=== PATIENT | male | born 1955 | race African-American/Black ===

== ENCOUNTER 2021-09-30 19:56 | Inpatient (IN) ==
[2021-09-30 21:01] LABS: Basophils # 0.1 K/mcL (0.0-0.2); Basophils % 0.9 %; Eosinophils # 0.3 K/mcL (0.0-0.6); Eosinophils % 3.6 %; Hematocrit 36.7 % (37.5-50.1); Hemoglobin 11.9 g/dL (12.9-16.9); Immature Granulocytes % 0.1 % (0-4); Lymphocytes # 2.9 K/mcL (0.6-4.6); Mean Corpuscular HGB Conc 32.4 g/dL (31.6-35.5); Mean Corpuscular Hemoglobin 27.9 pg (28.0-33.3); Mean Corpuscular Volume 86.2 fL (83.0-100.0); Mean Platelet Volume 9.4 fL (9.4-12.4); Monocytes # 0.9 K/mcL (0.0-1.3); Monocytes % 13.3 %; Neutrophils # 2.8 K/mcL (1.6-8.9); Platelet Count 220 K/mcL (140-400); Red Blood Count 4.26 M/mcL (4.19-5.50); Red Cell Distribution Width 14.4 % (11.5-14.5); Segmented Neutrophils % 40.1 %
[2021-09-30 21:11] LABS: INR 1.2; Prothrombin Time 13.4 Seconds (9.4-12.1)
[2021-09-30 21:13] LABS: Blood Urea Nitrogen 19 mg/dL (8-23); Carbon Dioxide 25 mEq/L (23-29); Chloride 104 mEq/L (98-107); Potassium 3.5 mEq/L (3.5-5.1); Sodium 138 mEq/L (136-145)
[2021-09-30 21:14] LABS: Alanine Aminotransferase 22 Units/L (7-52); Albumin 3.9 g/dL (3.5-5.7); Albumin/Globulin Ratio 1.8 (1.1-2.2); Alkaline Phosphatase 49 Units/L (34-104); Aspartate Amino Transferase 30 Units/L (13-39); BUN/Creatinine Ratio 24 (6-26); Bilirubin,Direct 0.2 mg/dL (0.0-0.2); Bilirubin,Indirect 0.7 mg/dL (0.0-1.0); Bilirubin,Total 0.9 mg/dL (0.3-1.0); Calcium 8.7 mg/dL (8.6-10.3); Ethanol < 10 mg/dL (Less than 10); Globulin 2.2 g/dL (2.4-3.5); Glucose 88 mg/dL (70-105); Osmolality,Calculated 288 (280-300); Total Protein 6.1 g/dL (6.4-8.9); Troponin I 0.03 ng/mL (< 0.04); eGFR For African Americans > 60 (> 60); eGFR For Non-African Americans > 60 (> 60)
[2021-09-30 22:39] LABS: Influenza A PCR Negative (Negative); Influenza B PCR Negative (Negative); Resp. Syncytial Virus PCR Negative (Negative)
[2021-09-30 22:41] LABS: SARS-CoV-2 by PCR (In House) Negative (Negative)
[2021-09-30] MEDS ORDERED: *HR* LORazepam 2 MG/ML VIAL IM ONE (23:39)
[2021-10-01] MEDS ORDERED: QUEtiapine Fumarate 100 MG TABLET PO ONE (00:15)
[2021-10-01] MEDS ORDERED: Naloxone 0.4 MG/ML INJ IVP PRN (01:11)
[2021-10-01] MEDS ORDERED: Ondansetron 4 MG/2 ML VIAL IVP PRN (01:11)
[2021-10-01] MEDS ORDERED: Melatonin 3 MG TABLET PO PRN (01:11)
[2021-10-01] MEDS ORDERED: *HR* Promethazine 25 MG/ML VIAL IM PRN (01:11)
[2021-10-01] MEDS ORDERED: Perflutren Lipid Microsphere 1.3 ML in 0.9 % Sodium Chloride 8.7 ML IVP PRN (01:13)
[2021-10-01] MEDS: Aspirin 325 MG TABLET PO ONE ×2 (01:22→01:42)
[2021-10-01] MEDS ORDERED: Ziprasidone 10 MG, Closed System Device IM Kit 1 EACH in Water for inj. (sterile) 0.5 ML IM ONE (01:57)
[2021-10-01] MEDS ORDERED: traZODone 50 MG TABLET PO ONE (02:15)
[2021-10-01] MEDS ORDERED: Ziprasidone 20 MG/VIAL VIAL IM ONE (02:20)
[2021-10-01] MEDS ORDERED: Water for inj. (sterile) 10 ML ONE (02:20)
[2021-10-01] MEDS ORDERED: *HR* LORazepam 2 MG/ML VIAL IVP PRN ×3 (02:43)
[2021-10-01] MEDS ORDERED: D5% in Water 1,000 ML IVC PRN (02:49)
[2021-10-01] MEDS ORDERED: Dextrose 4 GM Chewable Tablets PO PRN ×2 (02:49)
[2021-10-01] MEDS ORDERED: *HR* Dextrose 50 % in Water (Syg) 50 ML SYRINGE IVP PRN (02:49)
[2021-10-01] MEDS: Insulin LISPRO 300 UNITS/3 ML VIAL SUBQ SCH ×6 (04:46→23:31)
[2021-10-01] MEDS ORDERED: Regadenoson 0.4 MG/5 ML SYRINGE IVP ONE (06:00)
[2021-10-01] MEDS: Folic Acid 1 MG TABLET PO SCH (10:11)
[2021-10-01] MEDS: Thiamine (B-1) 100 MG TABLET PO SCH (10:11)
[2021-10-01] MEDS: Vitamin B Complex/Vit C/Vit E 1 EACH TABLET PO SCH (10:11)
[2021-10-01] MEDS ORDERED: chlorproMAZINE 25 MG TABLET PO PRN (10:24)
[2021-10-01] MEDS ORDERED: QUEtiapine Fumarate 25 MG TABLET PO SCH (10:30)
[2021-10-01] MEDS: Gabapentin 300 MG CAPSULE PO SCH ×2 (14:07→19:11)
[2021-10-01] MEDS: Acetaminophen 325 MG TABLET PO PRN ×2 (14:07→20:00)
[2021-10-01] MEDS: hydrOXYzine pamoate 25 MG CAPSULE PO PRN ×2 (14:07→20:00)
[2021-10-01] MEDS ORDERED: Fluticasone Propionate Nasal 50 MCG/SPRAY BOTTLE NS PRN (17:03)
[2021-10-01] MEDS: *HR* LORazepam 1 MG TABLET PO SCH (17:40)
[2021-10-01 18:16] LABS: Basophils % 0.6 %; Eosinophils # 0.2 K/mcL (0.0-0.6); Eosinophils % 3.4 %; Hematocrit 36.6 % (37.5-50.1); Immature Granulocytes % 0.2 % (0-4); Lymphocytes # 2.6 K/mcL (0.6-4.6); Lymphocytes % 38.9 %; Mean Corpuscular HGB Conc 32.8 g/dL (31.6-35.5); Mean Corpuscular Hemoglobin 28.1 pg (28.0-33.3); Mean Corpuscular Volume 85.7 fL (83.0-100.0); Mean Platelet Volume 9.7 fL (9.4-12.4); Monocytes # 0.7 K/mcL (0.0-1.3); Monocytes % 10.4 %; Neutrophils # 3.1 K/mcL (1.6-8.9); Platelet Count 230 K/mcL (140-400); Red Blood Count 4.27 M/mcL (4.19-5.50); Red Cell Distribution Width 14.3 % (11.5-14.5); Segmented Neutrophils % 46.5 %; White Blood Count 6.6 K/mcL (4.3-11.1)
[2021-10-01 18:25] LABS: INR 1.1; Prothrombin Time 12.4 Seconds (9.4-12.1)
[2021-10-01 18:32] LABS: Amphetamine Screen,Urine Positive ng/mL (Cutoff=1000); Barbiturate Screen,Urine Negative ng/mL (Cutoff=200); Benzodiazepines Screen,Urine Positive ng/mL (Cutoff=200); Cannabinoid Screen,Urine Positive ng/mL (Cutoff = 50); Cocaine Screen,Urine Negative ng/mL (Cutoff= 300); Opiate Screen,Urine Negative ng/mL (Cutoff=300); Phencyclidine Screen,Urine Negative ng/mL (Cutoff=25)
[2021-10-01 18:35] LABS: BUN/Creatinine Ratio 20 (6-26); Blood Urea Nitrogen 16 mg/dL (8-23); Calcium 8.9 mg/dL (8.6-10.3); Carbon Dioxide 25 mEq/L (23-29); Chloride 104 mEq/L (98-107); Cholesterol 140 mg/dL (< 200); Glucose 95 mg/dL (70-105); HDL Cholesterol 46 mg/dL (40-59); LDL Cholesterol,Calculated 81 mg/dL (< 100); Magnesium 1.6 mg/dL (1.6-2.6); Osmolality,Calculated 283 (280-300); Potassium 3.8 mEq/L (3.5-5.1); Sodium 136 mEq/L (136-145); Triglycerides 66 mg/dL (< 150); eGFR For African Americans > 60 (> 60); eGFR For Non-African Americans > 60 (> 60)
[2021-10-01 18:36] LABS: Troponin I 0.03 ng/mL (< 0.04)
[2021-10-02] MEDS: traZODone 50 MG TABLET PO PRN ×2 (00:26→19:51)
[2021-10-02] MEDS: Vitamin B Complex/Vit C/Vit E 1 EACH TABLET PO SCH (08:39)
[2021-10-02] MEDS: Folic Acid 1 MG TABLET PO SCH (08:43)
[2021-10-02] MEDS: Thiamine (B-1) 100 MG TABLET PO SCH (08:43)
[2021-10-02] MEDS: Loratadine 10 MG TABLET PO SCH (08:43)
[2021-10-02] MEDS: *HR* LORazepam 1 MG TABLET PO SCH (08:43)
[2021-10-02] MEDS: Finasteride 5 MG TABLET PO SCH (08:43)
[2021-10-02] MEDS: Gabapentin 300 MG CAPSULE PO SCH ×3 (08:43→19:43)
[2021-10-02] MEDS ORDERED: Perflutren Lipid Microsphere 1.3 ML in 0.9 % Sodium Chloride 8.7 ML IVP PRN (08:53)
[2021-10-02] MEDS: hydrOXYzine pamoate 25 MG CAPSULE PO PRN ×3 (08:58→19:50)
[2021-10-02] MEDS: Insulin LISPRO 300 UNITS/3 ML VIAL SUBQ SCH ×3 (11:24→23:36)
[2021-10-02] MEDS: Aspirin Enteric Coated 81 MG Tablet PO SCH (12:27)
[2021-10-02] MEDS: Famotidine 20 MG TABLET PO SCH (12:27)
[2021-10-02] MEDS ORDERED: *HR* Metoprolol 5 MG/5 ML VIAL IVP ONE (15:50)
[2021-10-02] MEDS ORDERED: hydrALAZINE 10 MG TABLET PO ONE (19:30)
[2021-10-02] MEDS: Acetaminophen 325 MG TABLET PO PRN (19:51)
[2021-10-03] MEDS: Insulin LISPRO 300 UNITS/3 ML VIAL SUBQ SCH ×4 (05:16→23:53)
[2021-10-03] MEDS: Loratadine 10 MG TABLET PO SCH (08:09)
[2021-10-03] MEDS: Folic Acid 1 MG TABLET PO SCH (08:10)
[2021-10-03] MEDS: hydrOXYzine pamoate 25 MG CAPSULE PO PRN (08:10)
[2021-10-03] MEDS: Thiamine (B-1) 100 MG TABLET PO SCH (08:10)
[2021-10-03] MEDS: Finasteride 5 MG TABLET PO SCH (08:10)
[2021-10-03] MEDS: Famotidine 20 MG TABLET PO SCH (08:10)
[2021-10-03] MEDS: Gabapentin 300 MG CAPSULE PO SCH ×3 (08:10→22:31)
[2021-10-03] MEDS: Vitamin B Complex/Vit C/Vit E 1 EACH TABLET PO SCH (08:10)
[2021-10-03] MEDS: *HR* LORazepam 1 MG TABLET PO SCH (08:10)
[2021-10-03] MEDS: Aspirin Enteric Coated 81 MG Tablet PO SCH (08:10)
[2021-10-03] MEDS: ChlorproMAZINE 25 MG/ML AMPUL IM ONE ×2 (10:54→19:05)
[2021-10-04] MEDS: Insulin LISPRO 300 UNITS/3 ML VIAL SUBQ SCH ×4 (05:05→22:58)
[2021-10-04] MEDS: Thiamine (B-1) 100 MG TABLET PO SCH ×2 (09:19→09:20)
[2021-10-04] MEDS: Finasteride 5 MG TABLET PO SCH ×2 (09:19→09:20)
[2021-10-04] MEDS: Gabapentin 300 MG CAPSULE PO SCH ×3 (09:19→19:45)
[2021-10-04] MEDS: *HR* LORazepam 1 MG TABLET PO SCH (09:19)
[2021-10-04] MEDS: Aspirin Enteric Coated 81 MG Tablet PO SCH (09:19)
[2021-10-04] MEDS: Vitamin B Complex/Vit C/Vit E 1 EACH TABLET PO SCH ×2 (09:19→09:20)
[2021-10-04] MEDS: Famotidine 20 MG TABLET PO SCH (09:20)
[2021-10-04] MEDS: Folic Acid 1 MG TABLET PO SCH (09:20)
[2021-10-04] MEDS: Loratadine 10 MG TABLET PO SCH (09:20)
[2021-10-04 10:37] LABS: Bilirubin,Urine Negative (Negative); Blood,Urine Negative (Negative); Clarity,Urine Clear (Clear); Color,Urine Light-Yellow (Yellow); Glucose,Urine (UA) Normal (Normal); Ketones,Urine Negative (Negative); Leukocyte Esterase,Urine Negative (Negative); Nitrite,Urine Negative (Negative); Protein,Urine Negative (Neg-Trace); Specific Gravity,Urine 1.018 (1.010-1.025); Urobilinogen,Urine Normal (Normal)
[2021-10-04] MEDS: Acetaminophen 325 MG TABLET PO PRN ×2 (11:38→23:53)
[2021-10-04] MEDS: hydrOXYzine pamoate 25 MG CAPSULE PO PRN ×2 (11:38→19:45)
[2021-10-04] MEDS: traZODone 50 MG TABLET PO PRN (19:45)
[2021-10-05 03:30] VITALS: TEMP 97.5
[2021-10-05] MEDS: Insulin LISPRO 300 UNITS/3 ML VIAL SUBQ SCH ×2 (05:02→12:06)
[2021-10-05] MEDS: hydrOXYzine pamoate 25 MG CAPSULE PO PRN (05:33)
[2021-10-05] MEDS: Acetaminophen 325 MG TABLET PO PRN (05:33)
[2021-10-05 06:57] VITALS: BP 168/98; PULSE 89; O2SAT 98
[2021-10-05 08:08] LABS: Adenovirus Not Detected (Not Detect); Bordetella Pertussis Not Detected (Not Detect); Chlamydophila pneumoniae Not Detected (Not Detect); Coronavirus 229E Not Detected (Not Detect); Coronavirus HKU1 Not Detected (Not Detect); Coronavirus NL63 Not Detected (Not Detect); Coronavirus OC43 Not Detected (Not Detect); Human Metapneumovirus Not Detected (Not Detect); Human Rhinovirus/Enterovirus Not Detected (Not Detect); Influenza A Subtype 2009 H1 Not Detected (Not Detect); Influenza B Not Detected (Not Detect); Mycoplasma pneumoniae Not Detected (Not Detect); Parainfluenza Virus 1 Not Detected (Not Detect); Parainfluenza Virus 2 Not Detected (Not Detect); Parainfluenza Virus 3 Not Detected (Not Detect); Parainfluenza Virus 4 Not Detected (Not Detect); Respiratory Syncytial Virus Not Detected (Not Detect); SARS-CoV-2 Not Detected (Not Detect)
[2021-10-05] MEDS: Famotidine 20 MG TABLET PO SCH (08:14)
[2021-10-05] MEDS: Finasteride 5 MG TABLET PO SCH (08:14)
[2021-10-05] MEDS: Gabapentin 300 MG CAPSULE PO SCH (08:14)
[2021-10-05] MEDS: Folic Acid 1 MG TABLET PO SCH (08:14)
[2021-10-05] MEDS: Loratadine 10 MG TABLET PO SCH (08:14)
[2021-10-05] MEDS: Aspirin Enteric Coated 81 MG Tablet PO SCH (08:14)
[2021-10-05] MEDS: Thiamine (B-1) 100 MG TABLET PO SCH (08:15)
[2021-10-05] MEDS: Vitamin B Complex/Vit C/Vit E 1 EACH TABLET PO SCH (08:15)
[2021-10-05] MEDS: *HR* LORazepam 1 MG TABLET PO SCH (08:16)
== END 2021-10-05 13:57 | DRG 313 ==
LOC: EMEROOARM 19:56 → 3BNU 19:56 → SUATTDRO 10-01 01:17 → 3BNU 10-01 03:03
PROVIDERS: ADMIT Internal Medicine; ATTEND Internal Medicine